=== PATIENT | female | born 1985 | race Caucasian/White ===

== ENCOUNTER → 2025-03-09 17:26 | Outpatient (REF) | payer OTHER, SELFPAY ==
[2025-03-10 14:56] LABS: Lyme Antibody Screen, EIA Negative (Negative)
== END ==
LOC: REG 17:26
PROVIDERS: ATTENDING PHYSICIAN Family Medicine
DX: M25.50 Pain in unspecified joint (principal); M79.10 Myalgia, unspecified site
CPT/HCPCS: 36415; 86618